=== PATIENT | male | born 1945 | race Caucasian/White ===

== ENCOUNTER 2017-03-25 05:10 | Day surgery (SDC) | payer MEDICARE, OTHER ==
[2017-03-25] MEDS ORDERED: BETAPACE 80 MG80 MG PO (06:17)
[2017-03-25] MEDS ORDERED: LIPITOR10 MG (06:18)
[2017-03-25] MEDS ORDERED: CO Q-10200 MG (06:19)
[2017-03-25] MEDS ORDERED: PROTONIX40 MG PO (06:20)
[2017-03-25] MEDS ORDERED: OMEGA 3 FISH OI1 CAP PO (06:20)
[2017-03-25] MEDS ORDERED: ASPIRIN325 MG PO (06:21)
[2017-03-25] MEDS ORDERED: L-CARNITINE PO (06:24)
[2017-03-25] MEDS ORDERED: CENTRUM SILVER1 TA1 PO (06:24)
[2017-03-25] MEDS ORDERED: FLOMAX0.4 MG PO (06:25)
[2017-03-25] MEDS ORDERED: KONSYL PSYLLIU3.4 GM PO (06:26)
[2017-03-25] MEDS ORDERED: [UNRECOGNIZED DRUG - OTHER] (06:27)
[2017-03-25] MEDS ORDERED: MOBIC7.5 MG (06:27)
[2017-03-25] MEDS ORDERED: ADVIL200 MG PO (06:28)
[2017-03-25 06:32] LABS: BASOPHILS 0.6 % (0-2); HEMATOCRIT 35.5 % (42.0-54.0); HEMOGLOBIN 12.2 g/dL (13.5-17.5); LYMPHOCYTES 18.3 % (15-50); MCH 31.4 pg (26.0-34.0); MCHC 34.4 g/dL (31.0-37.0); MCV 91.3 fL (80.0-100.0); MEAN PLATELET VOLUME 8.8 fL (7.4-10.4); MONOCYTES 18.3 % (2-11); NEUTROPHILS 57.8 % (40-80); PLATELET COUNT 181 10x3/uL (130-400); RBC 3.89 10x6/uL (4.20-6.10); RDW 13.9 % (11.5-14.5); WBC 3.4 10x3/uL (4.8-10.8)
[2017-03-25 06:39] VITALS: BP 122/73; BMI 23.5
[2017-03-25 06:56] LABS: CALC OSMOLALITY 284 mosm/kg (275-300); CALCIUM 8.8 mg/dL (8.5-10.1); CARBON DIOXIDE 29.6 mmol/L (21.0-32.0); CHLORIDE - SERUM 106 mmol/L (98-107); CREATININE - SERUM 0.9 mg/dL (0.6-1.3); GLUCOSE 99 mg/dL (74-106); POTASSIUM - SERUM 4.4 mmol/L (3.5-5.1); SODIUM 142 mmol/L (136-145); UREA NITROGEN 18 mg/dL (7-18); eGFR NON AFRICAN AMERICAN 88 mL/min (90-120)
[2017-03-25] MEDS ORDERED: HYDROCODONE-APA1 TAB PO (08:46)
--- NOTE | 2017-03-25 14:03 | OP ---
PATIENT NAME: ENRICO BURDICK MEDICAL RECORD: [id number] :45 LOCATION:D[facility] ADMISSION DATE: SURGEON: ANTHONY SAENZ MD DATE OF OPERATION: 03/25/2017 PREOPERATIVE DIAGNOSES: 1. Left inguinal hernia. 2. Atrial fibrillation. 3. Hypertension. 4. Hyperlipidemia. POSTOPERATIVE DIAGNOSES: 1. Left inguinal hernia. 2. Atrial fibrillation. 3. Hypertension. 4. Hyperlipidemia. PROCEDURE: Left inguinal hernia repair with medium PHS mesh. SURGEON: Anthony Saenz MD REPORT OF PROCEDURE: The patient's left groin was prepped and draped in sterile fashion. An oblique skin incision was made overlying the inguinal ligament. Electrocautery was used to dissect through subcutaneous tissues until we encountered the external oblique fascia. This fascia was opened up to the external ring using Metzenbaum scissors. The ilioinguinal nerve was found and high ligated. A Gage was then placed around the spermatic cord. The patient had an indirect hernia defect that was fat containing. This was freed up from the spermatic cord and placed back into the abdominal cavity. A medium PHS mesh was inserted into the preperitoneal space of Retzius and sutured down on all 4 sides using multiple interrupted 0 Vicryls. The mesh appeared to lie in good position. There was no sign of any active bleeding. The external oblique fascia was closed with running 2-0 Vicryls. Noam's was closed with interrupted 3-0 Vicryls and the skin was closed with running subcutaneous 5-0 Monocryl. A total of 10 mL of 0.25% Marcaine with epinephrine was infused into the surrounding tissues and the wound was dressed appropriately. COMPLICATIONS: None. CONDITION: Stable. ANESTHESIA: General endotracheal and local. BLOOD LOSS: Minimal. TRANSINT:[id number] Voice Confirmation ID: [id number] DOCUMENT ID: [id number] OPERATIVE REPORT [id number] ENRICO BURDICK ANTHONY SAENZ MD at 1403 CC: CONNIE REYNOLDS DO [id number] DICTATION DATE: 03/25/17 0850 SPECIMEN COLLECTOR: 03/25/17 0917 [id number] [place] [address]
--- NOTE | 2017-03-25 15:46 | NUR ---
1000 IV DC WITH CATHER TIP INTACT
== END 2017-03-25 10:30 | disposition home or self-care (01) ==
LOC: D.OPS 05:10 → D.PAN 11:30 → D.OPS 11:30
PROVIDERS: Surgery
DX: K40.90 Unilateral inguinal hernia, without obstruction or gangrene, not specified as recurrent (principal); E78.5 Hyperlipidemia, unspecified; I10 Essential (primary) hypertension; I48.91 Unspecified atrial fibrillation; C14.0 Malignant neoplasm of pharynx, unspecified; Z01.812 Encounter for preprocedural laboratory examination

== ENCOUNTER → 2017-08-15 15:20 | Outpatient (CLI) | payer MEDICARE, OTHER ==
[~2017-08-15 15:20] MED LIST: ADVIL200 MG PO; ASPIRIN325 MG PO; BETAPACE 80 MG80 MG PO; CENTRUM SILVER1 TA1 PO; CO Q-10200 MG; FLOMAX0.4 MG PO; HYDROCODONE-APA1 TAB PO; KONSYL PSYLLIU3.4 GM PO; L-CARNITINE PO; LIPITOR10 MG; MOBIC7.5 MG; OMEGA 3 FISH OI1 CAP PO; PROTONIX40 MG PO; [UNRECOGNIZED DRUG - OTHER]
== END | disposition home or self-care (01) ==
LOC: D.MRI 15:20
DX: M25.511 Pain in right shoulder (principal)

== ENCOUNTER 2018-07-13 06:00 | Day surgery (SDC) | payer MEDICARE, OTHER ==
[2018-07-11 10:43] LABS: BASOPHILS 0.5 % (0-2); EOSINOPHILS 1.8 % (0-7); HEMATOCRIT 38.4 % (42.0-54.0); HEMOGLOBIN 13.1 g/dL (13.5-17.5); IMMATURE GRANULOCYTES 0.3 % (0-5); LYMPHOCYTES 18.1 % (15-50); MCH 29.7 pg (26.0-34.0); MCHC 34.1 g/dL (31.0-37.0); MCV 87.1 fL (80.0-100.0); MEAN PLATELET VOLUME 9.1 fL (7.4-10.4); MONOCYTES 11.5 % (2-11); NEUTROPHILS 67.8 % (40-80); PLATELET COUNT 208 10x3/uL (130-400); RBC 4.41 10x6/uL (4.20-6.10); WBC 3.9 10x3/uL (4.8-10.8)
[2018-07-11 10:50] LABS: APTT 29.8 SECONDS (22.8-39.4); INR 1.06 (0.85-1.17); PROTIME 13.3 SECONDS (11.6-15.0)
[~2018-07-13] VITALS: Ht 185.4 cm; Wt 80.7 kg
[2018-07-13] MEDS ORDERED: OSTEO BI-FLEX1 EAC1 PO (06:34)
[2018-07-13] MEDS ORDERED: KRILL OIL 1,001 EAC1 PO (06:34)
[2018-07-13 06:45] VITALS: BP 130/61; Ht 185.4 cm; Wt 80.7 kg
--- NOTE | 2018-07-13 08:50 | NUR ---
REC'D FROM RR. FAMILY AT BEDSIDE. FL TRAY AND ICE WATER BROUGHT TO PATIENT.
--- NOTE | 2018-07-13 09:20 | NUR ---
TOLERATING DIET. FAMILY AT BEDSIDE.
--- NOTE | 2018-07-13 09:50 | NUR ---
IV DC'D WITH CATHETER INTACT. WRITTEN AND VERBAL DC INST. GIVEN TO PT. VERBALIZED UNDERSTANDING. DEMONSTRATED PROCEDURE FOR CHANGING CORREIA OVER TO LEG BAG. VERBALIZED UNDERSTANDING.
--- NOTE | 2018-07-13 09:55 | NUR ---
DC'D HOME WITH FAMILY VIA PRIVATE VEHICLE. TAKEN TO VEHICLE VIA WC. STABLE AT TIME OF DC.
--- NOTE | 2018-07-13 10:42 | OP ---
PATIENT NAME: ENRICO BURDICK MEDICAL RECORD: [id number] :45 LOCATION:[facility] ADMISSION DATE: SURGEON: HOLGER GILLIAM MD DATE OF OPERATION: 07/13/2018 SURGEON: Holger Gilliam MD ANESTHESIA: TIVA by Bro Madden. DIAGNOSIS: Obstructive BPH. PROCEDURE: Cystoscopy with UroLift implants times 6 attempted and 4 units held. FINDINGS: On cystoscopy, no urethral strictures. Bilateral lateral lobe hyperplasia. No median lobe enlargement. Single ureteral orifices bilaterally. No bladder tumors were seen. A 40-gram prostate on transrectal ultrasound. IPSS score was 18 and quality of life score was 5. BLOOD LOSS: Minimal. CLINICAL HISTORY: This is a 72-year-old male, who has symptoms of obstructive BPH for which he has been on tamsulosin since at least 2016. His PSA was 3.7 on 08/03/2017 and he had a transrectal ultrasound showing a 40-gram prostate. He has significant voiding symptoms including nocturia times 4-5 and daytime urinary frequency every 2 hours. He has issues with urge incontinence, hesitancy, weak stream, and feeling of incomplete bladder emptying. On tamsulosin, his IPSS score is 18 and quality of life score is 5. HE IS ALLERGIC TO CIPRO AND LISINOPRIL. 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 DESCRIPTION OF PROCEDURE: The patient was given IV sedation. He is circumcised and he has a penile prosthesis, which is inflatable in place. The UroLift cystoscope was used. The findings are as outlined above. I first attempted to place the left proximal UroLift device in the anterior lateral lobe. This was placed about 1.5-2 cm distal to the bladder neck. The device did not pass all the way through the prostate as the tissue here seems to be especially thick. I attempted a second device and again the device did not pass all the way through to the tissue on this side. I then went to the bladder neck region on the right side and this device held and was implanted. The 2 verumontanum level anterior urethral lateral lobe devices were placed without any incident. Finally, for the last device, I went back and attempted the bladder neck level device placement on the left side. At this time, I applied an extremely high level of compression and this device did finally hold. The extreme compression caused a bit of bleeding. I therefore placed a Dixon catheter into the patient's bladder to prevent any issues with clot urinary retention. I will see the patient back next week to remove the catheter for a voiding trial. TRANSINT:[id number] Voice Confirmation ID: [id number] DOCUMENT ID: [id number] OPERATIVE REPORT [id number] ENRICO BURDICK, HOLGER Goncalves MD at 1042 CC: [id number] DICTATION DATE: 07/13/18830 MOLD FINISHER: 07/13/18 1041 [facility] [address] [place] [address]
== END 2018-07-13 09:55 | disposition home or self-care (01) ==
LOC: D.OPS 06:00 → D.PAN 08:30 → D.OPS 09:55
PROVIDERS: Anesthesiology
DX: N40.1 Benign prostatic hyperplasia with lower urinary tract symptoms (principal); N13.8 Other obstructive and reflux uropathy